=== PATIENT | male | born 1980 | race Caucasian/White ===

== ENCOUNTER 2020-10-24 08:31 | Emergency (ER) | payer OTHER, SELFPAY ==
--- NOTE | ~2020-10-24 | XR_ITS ---
EXAMINATION: XR chest 2V EXAM DATE: 10/24/2020 09:11 INDICATION: Nonproductive cough. Nonsmoker. TECHNIQUE: Frontal and lateral projections of the chest obtained and reviewed. There is no prior thea dy for comparison. FINDINGS: The lungs are clear. There are no pleural effusions. The cardiomediastinal silhouette is within normal limits. There is no pneumothorax suspected. The bones and soft tissues are unremarkab le. IMPRESSION: Normal chest x-ray exam. Reviewed, dictated and finalized at location A. IMPRESSION: Normal chest x-ray exam.
[2020-10-24 08:57] VITALS: BP 105/80; PULSE 76; RESP 16; TEMP 36.8; O2SAT 97
--- NOTE | 2020-10-24 08:57 | ED.URI ---
HPI - URI/Sore Throat General Chief Complaint: Upper Respiratory Infection Stated Complaint: fever/nausea/sore throat/body aches Source: patient and RN notes reviewed Limitations: no limitations History of Present Illness HPI Narrative: The patient -a rare smoker/nondrinker-presents with cough and fever. 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 Now he has a shorter 1 to 2-day history of fever 101 ax, mild nonproductive cough and myalgias. No vomiting/diarrhea/dehydration, loss of taste/smell, wheezing/sneezing, S OB, rash, CP. Rapid test for Covid antigen is positive. Discussed results with patient, and is advised to isolate- discussed provided handout Related Data Home Medications Medication Instructions Recorded Confirmed alprazolam [Xanax] 0.5 mg PO BID 10/24/20 10/24/20 tramadol [Ultram] 50 mg PO TID 10/24/20 10/24/20 Allergies Allergy/AdvReac Type Severity Reaction Status Date / Time No Known Allergies Allergy Mild Verified 10/24/20 08:49 Review of Systems Review of Systems: Narrative: General/Constitutional: No weight loss, REPORTS fever Eyes: N0: Redness,discharge Ears/Nose/Throat: No: Epistaxis,ear discharge Respiratory: Denies: Hemoptysis Gastrointestinal: No Vomiting, Bleeding-rectal Skin: No Lumps, eruption Neurologic: No Focal Weakness,Sz Hematologic: Denies: Petechiae/Purpura Psychiatric: No: Suicida ideationl All Other Systems: Reviewed and Negative PMFSH Family History Family History (Updated 02/15/16 @ 23:21 by DOCTOR UNKNOWN) Father Hypertension Family history of kidney disease Mother Patient's mother is in good health, Onset Age: 51 Sibling Patient's sister is in good health, Onset Age: 22 Patient's brother is in good health, Onset Age: 19 Other Diabetes mellitus Family history of alcoholism Family history of arthritis Social History Social History Alcohol intake: current Gender identity (if verbalized by the patient): Male Comments At time of signature, agree with nursing past medical, surgical, social and family history. There is no relevant family history pertinent to the presenting complaint Exam Narrative: Exam Narrative: General Appearance: Well appearing, Well nourished EYE: PERRLA, Conjunctiva clear Ears: Auditory canal normal, TM normal Nose: Rhinorrhea, Mucousal erythema Mouth/Throat: MM moist, Uvula midline, Pharyngeal erythema Neck: Supple, No adenopathy Respiratory: No respiratory distress, Breath sounds equal, Clear to auscultation Cardiovascular: RRR, No JVD Musculoskeletal: Non tender, Normal strength Skin: Warm, Dry Neurological: A&O x3, CN II-XII intact Psychiatric: Normal mood, Normal affect Course Course Emergency Course: Films visualized, interpreted by radiologist, agree, normal see report Vital Signs Vital signs: Vital Signs Temperature 98.3 F 10/24/20 08:57 Pulse Rate 76 10/24/20 08:57 Respiratory Rate 16 10/24/20 08:57 Blood Pressure 105/80 10/24/20 08:57 Pulse Oximetry 97 10/24/20 08:57 Temperature 98.3 F 10/24/20 08:57 Pulse Rate 76 10/24/20 08:57 Respiratory Rate 16 10/24/20 08:57 Blood Pressure 105/80 10/24/20 08:57 Pulse Oximetry 97 10/24/20 08:57 MDM - URI/Sore Throat Lab Data Labs: Lab Results 10/24/20 Range/Units 08:59 POC SARS CoV-2 Ag Positive (Negative) Discharge Plan Discharge Clinical Impression: COVID-19 Patient Disposition: Home, Self-Care Condition: Stable Instructions: COVID-19 (Coronavirus Disease 2019) (ED) Additional Instructions: As discussed get pulse ox ,Vitamins D, B, C ; supplements [like zinc ] and aspirin from pharmacy Isolate for 2 weeks Prescriptions: New codeine-guaifenesin 10-100 mg/5 mL liquid 7.5 ml PO Q6H PRN (Reason: cough) Qty: 118 RF: 1 No Action tramadol [Ultram] 50 mg Tablet 50 mg PO TID RF: 0 alprazolam [Xanax] 0.5 mg Ta
== END 2020-10-24 09:34 | disposition home or self-care (01) ==
PROVIDERS: Emergency Provider Emergency Medicine; PCP Emergency Medicine
DX: U07.1 COVID-19 (principal)
CPT/HCPCS: 71046; 87426; 99213; C9803; G0463

== ENCOUNTER 2025-02-21 13:02 | Emergency (ER) | payer OTHER, SELFPAY ==
[2025-02-21 13:08] VITALS: BP 157/96; PULSE 88; RESP 15; TEMP 36.4; O2SAT 99
--- OUTSIDE RECORDS SUMMARY | 2025-02-21 13:09 | XMS_ITS | Patient Health Record ---
Author Organization [facility] [employer] [facility] Address [address] [facility] [address] [place] [address] Care Team Providers Care Dry Goods Clerk Name Role Phone Khoi Troncoso Unavailable [phone] Reason For Referral No Information Medications Medication SIG (Take, Route, Frequency, Duration) Notes Start Date End Date Status ALPRAZolam 0.5 MG Oral 08/20/2022 A ctive methylPREDNISolone 4 MG Oral 08/20/2022 Active traMADol HCl 50 MG Oral 08/20/2022 Active BinaxNOW COVID-19 Ag Card In Vitro *Reord er from [employer] for eRx and Interaction Alerts* 08/20/2022 Active lamoTRIgine 25 MG Oral 08/20/2022 A ctive Escitalopram Oxalate 10 MG Oral 08/20/2022 Active Immunizations Vaccine Route Administration Date Status Comme nts Pfizer [employer] Covid-19 Vac cine 2nd dose Unknown 01/27/2021 Administered Pfizer [employer] Covid-19 Vac cine 2nd dose Unknown 02/17/2021 Administered Plan Of Treatment No Information Insurance Providers Payer Name Payer Address Payer Phone Subscriber Number Group Number Insured Name Patient Relationship to Insured Coverage Start Date Coverage End Date [employer] [address] [address] [place] [address] [id number] MARICARMEN MEL Self - patient is the insured
--- NOTE | 2025-02-21 14:58 | ED.GENADULT ---
HPI - General Adult General Chief complaint: Extremity Injury, Lower Stated complaint: infection in knee, abx not helping Time Seen by Provider: 02/21/25 14:25 History of Present Illness HPI narrative: This is a 44-year-old male presenting ED with concerns about his right knee. 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 He has felt developed swelling over his knee and was diagnosed with bursitis at an outside facility. He was placed on Bactrim. Since then the redness and pain have decreased significantly. He came to the ED could see noticed a little bit of swelling around his ankle. No other complaints. Denies fevers chills nausea vomiting diarrhea body aches. No risk factors for DVT PE. Related Data Home Medications ?Medication ?Instructions ?Recorded ?Confirmed ?Last Taken ?Type multivitamin 1 tablet PO DAILY 08/05/22 Unknown History omega 4-krk-qrc-fish oil 60 mg-90 1 cap PO DAILY 08/05/22 Unknown History mg-500 mg capsule (Fish Oil) tramadol 50 mg tablet 50 mg PO Q6H PRN 08/05/22 Unknown History Allergies Allergy/AdvReac Type Severity Reaction Status Date / Time alprazolam (From Xanax) Allergy Swelling Verified 02/21/25 13:10 of Lip/Tongue/Throat varenicline (From Chantix) Allergy Other Verified 02/21/25 13:10 [facility] Past Medical History Medical History (Updated 02/21/25 @ 15:02 by Pb Fernandez MD) 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 Epicondylitis, lateral, left Lateral epicondylitis Biceps tendonitis Left shoulder pain COVID-19 Family History Family History Father Hypertension Family history of kidney disease Mother Patient's mother is in good health, Onset Age: 51 Sibling Patient's sister is in good health, Onset Age: 22 Patient's brother is in good health, Onset Age: 19 Other Diabetes mellitus Family history of alcoholism Family history of arthritis Social History Social History Smoking status: Former smoker (currently uses chewing tobacco) Smokeless tobacco user: chewing tobacco Alcohol intake: current Gender identity (if verbalized by the patient): Male Exam Narrative: APPEARANCE: No apparent distress. Head: atraumatic. EYES: EOMI, NOSE: Atraumatic NECK: Trachea midline RESPIRATORY: No increased rate of breathing CARDIOVASCULAR: RRR, ABDOMINAL: Non-distended MUSCULOSKELETAl: Focal exam of the right knee revealed swelling without erythema or tenderness over the prepatellar bursa bursa. Mild edema at the ankle NEURO: Alert. Moving 4/4 extremities SKIN:: Warm, dry. Normal color PSYCHIATRIC: Normal affect Course Vital Signs Vital signs: Vital Signs Temperature 97.6 F 02/21/25 13:08 Pulse Rate 88 02/21/25 13:08 Respiratory Rate 15 02/21/25 13:08 Blood Pressure 157/96 H 02/21/25 13:08 Pulse Oximetry 99 02/21/25 13:08 Oxygen Delivery Room Air 02/21/25 13:08 Temperature 97.6 F 02/21/25 13:08 Pulse Rate 88 02/21/25 13:08 Respiratory Rate 15 02/21/25 13:08 Blood Pressure 157/96 H 02/21/25 13:08 Pulse Oximetry 99 02/21/25 13:08 Oxygen Delivery Room Air 02/21/25 13:08 Medical Decision Making [facility] Narrative Medical decision making narrative: -Course: 44-year-old male presenting prepatellar bursitis that appears to be improving. He has no erythema or discharge over the bursa. He was worried about some swelling around his ankle which is likely just dependent edema from his bursitis. Patient states that he is improving. He will be discharged orthopedic follow-up. Given return precautions for worsening swelling or signs of infection. -DDX includes but is not limited to: Dependent edema, DVT, Vital Signs Vital Signs: Vital Signs Temperature 97.6 F 02/21/25 13:08 Pulse Rate 88 02/21/25 13:08 Respiratory Rate 15 02/21/25 13:08 Blood Pressure 157/96 H 02/21/25 13:08 Pulse Oximetry 99 02/21/25 13:08 Oxygen Delivery Room Air 02/21/25 13:08 Temperature 97.6 F 02/21/25 13:08 Pulse Rate 88 02/21/25 13:08 Respiratory Rate 15 02/21/25 13:08 Blood Pressure 157/96 H 02/21/25 13:08 Pulse Oximetry 99 02/21/25 13:08 Oxygen Delivery Room Air 02/21/25 13:08 Discharge Plan Discharge Clinical Impression: Bursitis, prepatellar, right Patient Disposition: Home Condition: Stable Instructions: Antibiotic Form, Knee Bursitis (ED) Additional Instructions: You seen emergency department for swelling to her leg. Please continue the antibiotics. Please elevate your leg at night. Please return to the ED if you develop worsening swelling fevers or redness your joint. If your leg is not improving and follow-up with your orthopedic surgeon listed below in 1 week. Patient Language: Paraguayan Prescriptions: No Action methylprednisolone [Medrol (Luke)] 4 mg tablets,dose pack See Rx Instructions PO PER PKG DIR Qty: 21 0RF Rx Instructions: PO PER PKG DIR tramadol 50 mg tablet 50 mg PO Q6H PRN omega 1-gzp-qej-fish oil [Fish Oil] 60-90-500 mg capsule 1 cap PO DAILY multivitamin Tablet 1 tablet PO DAILY Follow-up/Referrals: Kevin Bernal MD [Physician] - 1 Week Zander Urena MD [Primary Care Provider] -
--- OUTSIDE RECORDS SUMMARY | 2025-02-21 15:00 | XMS_ITS | Patient Health Record ---
Author Organization [facility] Address [address] [place] [address] Care Team Providers Care Dish Technician Name Role Phone Vu Fields Primary Care Provider Dylan Jacob Unavailable [phone] Angella Gastelum Unavailable [phone] Allergies No Known Allergies Results Component Value Reference Range Notes 12 Panel Urine Drug Screen Reviewed date:03/01/2024 01:38:07 PM Interpretation: Performing Lab: Notes/Report: THC neg ZAINAB neg MOP (OPI) neg AMP neg MET neg BAR neg BZO neg MDMA neg MTD neg OXY neg PCP neg BUP neg 12 Panel Urine Drug Screen Reviewed date:04/07/2024 10:34:26 AM Interpretation: Performing Lab: Notes/Report: THC NEG ZAINAB NEG MOP (OPI) NEG AMP NEG MET NEG BAR NEG BZO NEG MDMA NEG MTD NEG OXY NEG PCP NEG BUP NEG Reason For Referral No Information Medications Medication SIG (Take, Route, Frequency, Duration) Notes Start Date End Date Status traMADol HCl 50 MG 1 tablet as needed O rally Once a day Active Testosterone Cypionate 100 MG/ML 1 mL Intramuscular Active Acamprosate Calcium 333 MG 2 tablets Ora lly three times a day; Duration: 30 days 03/01/2024 Active Social History Tobacco Use: Social History Observation Description Date Details (start date - stop date) Never Smoker NA - NA Sex Assigned At : Social History Observation Description Sex Assigned At Male Tobacco Control (Standard) Question Answer Notes Tobacco use: Nonsmoker Problems Problem Type SNOMED Code ICD Code Onset Dates Problem Status W/U Status Risk Notes Problem Alcohol use disorder (4084466021) Alcohol use disorder (F10.99) Active confirmed Vital Signs Heart Rate 88 /min 04/07/2024 Temperature 98.2 degrees Fahrenheit 04/07/2024 Respiratory Rate 16 /min 04/07/2024 Blood pressure diastolic 78 mm Hg 04/07/2024 Oximetry 97 % 04/07/2024 Height 68 in 04/07/2024 Blood pressure systolic 142 mm Hg 04/07/2024 Weight 189.6 lbs 04/07/2024 BMI 28.83 kg/m2 04/07/2024 Encounters Encounter Location Date Provider Diagnosis [facility] [place] [address] 03/01/2024 Dylan Jacob Nutritional counseling Z71.3 ; Alcohol use disorder F10.99 and Overweight (BMI 25.0-29.9) E66.[address] [place] [address] 04/07/2024 Angella Gastelum Alcohol use disorder F10.99 ; Nutritional counseling Z71.3 and Overweight (BMI 25.0-29.9) E66.[address] [address] 04/22/2024 Angella Gastelum Assessments Encounter Date Diagnosis (ICD Code) Assessment Notes Treatment Notes Treatment Clinical Notes Section Notes 03/01/2024 Alcohol use disorder (ICD-10 - F10.99) Client intially interested in oral naltrexone for treatment. However, due to client reporting prescribed tramadol and taking daily not a candidate for oral naltrexone. Client agreeable to starting acamprosate as an alternative. 03/01/2024 Nutritional counseling (ICD-10 - Z71.3) 04/07/2024 Alcohol use disorder (ICD-10 - F10.99) Discussed risks of chronic alcohol use. Discussed signs/symptoms of alcohol withdrawal and when to seek emergent medical attention. Discussed risks of severe alcohol withdrawal. Acamprosate may be less effective when started prior to achieving abstinence (NEI Prescribe). Unable to take naltrexone due to tramadol. Strongly encourage inpatient alcohol detox. Discussed medication side effects, adverse effects, risks, benefits, as well as interactions. 04/07/2024 Nutritional counseling (ICD-10 - Z71.3) 04/07/2024 Overweight (BMI 25.0-29.9) (ICD-10 - E66.3) 03/01/2024 Overweight (BMI 25.0-29.9) (ICD-10 - E66.3) 03/01/2024 Other Client agrees to take medication as prescribed. Discussed medication side effects, adverse effects, risks, benefits, as well as interactions. Encouraged non-use of alcohol. Recommended participation in recovery groups/counseling services. Agrees to contact office with questions or concerns. Plan Of Treatment No Information Insurance Providers Payer Name Payer Address Payer Phone Subscriber Number Group Number Insured Name Patient Relationship to Insured Coverage Start Date Coverage End Date [facility] [address] [address] [place] [address] [id number] Silvio Almanza Self - patient is the insured 4 Medical (General) History Hospitalization History Reason Date(Month/Year) Dehydration
[2025-02-21 15:12] VITALS: BP 134/86; PULSE 66; RESP 18; O2SAT 99
== END 2025-02-21 15:13 | disposition home or self-care (01) ==
PROVIDERS: Emergency Provider Emergency Medicine; PCP Emergency Medicine
DX: M70.41 Prepatellar bursitis, right knee (principal); M19.022 Primary osteoarthritis, left elbow; M19.021 Primary osteoarthritis, right elbow; F17.220 Nicotine dependence, chewing tobacco, uncomplicated; Z86.16 Personal history of COVID-19
CPT/HCPCS: 99281